=== PATIENT | female | born 1990 | race Caucasian/White ===

== ENCOUNTER 2016-06-11 11:44 | Observation (INO) | payer MEDICAID ==
[~2016-06-11] VITALS: Ht 170.2 cm; Wt 54.4 kg
[~2016-06-11 11:44] MED LIST: ALPR2TAB2 PO; BUPR4MIS SL
[2016-06-11] MEDS ORDERED: SODIUM CHLORIDE 0.9% 1,000 ML IVB ONE (13:02)
[2016-06-11 13:40] LABS: Basophils # (auto) 0 uL; Basophils % (auto) 0.4 % (0.0-2.0); Eosinophils # (auto) 0.1 uL; Eosinophils % (auto) 1.1 % (0.0-7.0); Hematocrit 46.1 % (36.0-46.0); Hemoglobin 15.5 g/dL (12.2-16.2); Lymphocytes # (auto) 1.6 uL; Lymphocytes % (auto) 18.2 % (10.0-50.0); Mean Corpuscular Hemoglobin 31.5 pg (28.0-32.0); Mean Corpuscular Hgb Conc. 33.6 g/dL (32.0-36.0); Mean Corpuscular Volume 93.8 fL (80.0-100.0); Mean Platelet Volume 7.7 fL (7.4-10.4); Monocytes # (auto) 0.8 uL; Monocytes % (auto) 9.1 % (0.0-12.0); Neutrophils # (auto) 6.3 uL; Neutrophils % (auto) 71.2 % (37.0-80.0); Platelet Count (auto) 409 10^3/uL (140-450); Red Cell Distribution Width 12.9 % (11.6-16.0); White Blood Cell 8.9 10^3/uL (4.4-10.8)
[2016-06-11 13:44] LABS: INR 1.13 (0.9-1.15); Partial Thromboplastin Time 21.5 sec (22.64-33.71); Prothrombin Time 11.6 sec (9.37-12.3)
[2016-06-11 14:05] LABS: Albumin 4.5 g/dL (3.4-5.0); Anion Gap 12 (5-15); Aspartate Aminotransferase 8 U/L (15-37); BUN/Creatinine Ratio 41.7; Blood Urea Nitrogen 20 mg/dL (7-18); Calcium 8.8 mg/dL (8.5-10.1); Carbon Dioxide 23 mmol/L (21-32); Chloride 105 mmol/L (98-107); GFR African American 201 mL/min; GFR Non-African American 166 mL/min; Glucose 85 mg/dL (74-106); Magnesium 2.2 mg/dL (1.6-2.6); Potassium 3.6 mmol/L (3.5-5.1); Sodium 140 mmol/L (136-145)
[2016-06-11 14:08] LABS: Alkaline Phosphatase 69 U/L (45-117); Bilirubin, Total 0.6 mg/dL (0.2-1.0); Total Protein 8.6 g/dL (6.4-8.2)
[2016-06-11 15:58] VITALS: BP 106/67
[2016-06-11 16:11] LABS: Urine RBC None Seen /hpf (0 - 4)
[2016-06-11 16:40] LABS: Urine Bilirubin Negative (Negative); Urine Blood Negative /uL (Negative); Urine Color Yellow (Yellow); Urine Glucose Normal (Normal); Urine Hyaline Cast FEW /lpf (0 - 2); Urine Mucus FEW (None Seen); Urine Squamous Epithelial Cell FEW /hpf (<5); Urine Urobilinogen Normal (Negative)
[2016-06-11 16:51] LABS: Urine Ketone 4+ (Negative); Urine Nitrite POSITIVE (Negative)
== END 2016-06-11 17:52 | disposition home or self-care (01) | DRG 463 ==
LOC: EDBD 11:44 → ER 11:44 → UNDOADMOB 11:45 → OVERFLOW 11:45 → UNDODISOB 17:52 → ER 17:52
PROVIDERS: ADMIT Family Medicine; ATTEND Family Medicine
DX: N30.00 Acute cystitis without hematuria (principal); F19.20 Other psychoactive substance dependence, uncomplicated; Z79.899 Other long term (current) drug therapy; Z82.49 Family history of ischemic heart disease and other diseases of the circulatory system; F17.210 Nicotine dependence, cigarettes, uncomplicated
CPT/HCPCS: 36415; 80053; 80320; 81001; 83735; 85025; 85610; 85730; 96360; G0378; G0434

== ENCOUNTER 2017-12-02 11:17 | Inpatient (IN) | payer MEDICAID ==
[~2017-12-02] VITALS: Ht 170.2 cm; Wt 83.4 kg
[2017-12-02 12:20] LABS: Urine Bacteria FEW /hpf (None Seen); Urine Blood TRACE /uL (Negative); Urine Mucus FEW (None Seen); Urine Specific Gravity 1.025 (1.001-1.035); Urine WBC 3 /hpf (0 - 5)
[2017-12-02 12:59] LABS: Basophils # (auto) 0 uL; Basophils % (auto) 0.1 % (0.0-2.0); Eosinophils # (auto) 0 uL; Lymphocytes # (auto) 0.7 uL; Monocytes # (auto) 0.8 uL; Red Cell Distribution Width 14.5 % (11.8-14.3)
[2017-12-02 13:02] LABS: Eosinophils % (auto) 0.2 % (0.0-7.0); Hematocrit 46.9 % (36.0-46.0); Hemoglobin 16.1 g/dL (12.2-16.2); Lymphocytes % (auto) 6.1 % (10.0-50.0); Mean Corpuscular Hemoglobin 35.3 pg (28.0-32.0); Mean Corpuscular Hgb Conc. 34.3 g/dL (32.0-36.0); Monocytes % (auto) 7.1 % (0.0-12.0); Neutrophils # (auto) 10.3 uL; Neutrophils % (auto) 86.5 % (37.0-80.0); Nucleated Red Blood Cells % 0.1 %; Platelet Count (auto) 248 10^3/uL (140-450); Red Blood Cells 4.55 10^6/uL (4.0-5.20); White Blood Cell 11.9 10^3/uL (4.4-10.8)
[2017-12-02 13:20] LABS: Albumin 3.7 g/dL (3.4-5.0); BUN/Creatinine Ratio 25.8; Calcium 8.5 mg/dL (8.5-10.1); Potassium 3.9 mmol/L (3.5-5.1); Total Protein 8.1 g/dL (6.4-8.2)
[2017-12-02 13:28] LABS: Bilirubin, Total 1.6 mg/dL (0.2-1.0)
[2017-12-02] MEDS ORDERED: SODIUM CHLORIDE 0.9% 1,000 ML IVB ONE (14:39)
[2017-12-02] MEDS ORDERED: cefTRIAXone 1GM/10ml IVPUSH 10 ML IV ONE ×2 (14:45→18:15)
[2017-12-02] MEDS ORDERED: ONDANSETRON HCL 4 MG/2 ML VIAL IV ONE (14:45)
[2017-12-02] MEDS ORDERED: MORPHINE SULF INJ 2 MG/ML SYRINGE 1ML IV ONE (15:45)
[2017-12-02] MEDS ORDERED: NITROGLYCERIN 0.4 MG SL TAB SL PRN (18:15)
[2017-12-02] MEDS ORDERED: SODIUM CHLORIDE 0.9% 1,000 ML IV ONE (18:15)
[2017-12-02] MEDS ORDERED: MORPHINE SULF INJ 2 MG/ML SYRINGE 1ML IV PRN (18:15)
[2017-12-02] MEDS ORDERED: PANTOPRAZOLE 40 MG/10 ML VIAL IV ONE (18:30)
[2017-12-02] MEDS: metroNIDAZOLE 500MG/100ML 100 ML IV SCH ×2 (20:15→22:00)
[2017-12-02] MEDS: MORPHINE SULFATE 4 MG/ML SYR/VIAL IV PRN (20:19)
[2017-12-02] MEDS: traZODone HCL 50 MG TAB PO SCH (22:00)
[2017-12-02 23:30] VITALS: BP 151/87
[2017-12-02 23:39] VITALS: BP 151/87
[2017-12-03] MEDS: MORPHINE SULFATE 4 MG/ML SYR/VIAL IV PRN ×3 (02:00→10:20)
[2017-12-03] MEDS ORDERED: TRAZ50TA2 PO (02:15)
[2017-12-03] MEDS ORDERED: OLAN20TA13 PO (02:15)
[2017-12-03 05:00] VITALS: BP 145/76
[2017-12-03] MEDS: metroNIDAZOLE 500MG/100ML 100 ML IV SCH ×3 (06:11→20:59)
[2017-12-03 06:26] LABS: Basophils # (auto) 0 uL; Basophils % (auto) 0.1 % (0.0-2.0); Eosinophils # (auto) 0.1 uL; Eosinophils % (auto) 1.1 % (0.0-7.0); Hematocrit 43.6 % (36.0-46.0); Lymphocytes # (auto) 0.7 uL; Lymphocytes % (auto) 7.4 % (10.0-50.0); Monocytes # (auto) 0.7 uL; Neutrophils # (auto) 7.9 uL; White Blood Cell 9.4 10^3/uL (4.4-10.8)
[2017-12-03 06:30] LABS: Mean Corpuscular Hemoglobin 35.4 pg (28.0-32.0); Mean Corpuscular Hgb Conc. 34.5 g/dL (32.0-36.0); Mean Corpuscular Volume 102.6 fL (80.0-100.0); Monocytes % (auto) 7.4 % (0.0-12.0); Platelet Count (auto) 182 10^3/uL (140-450); Red Blood Cells 4.25 10^6/uL (4.0-5.20); Red Cell Distribution Width 14.6 % (11.8-14.3)
[2017-12-03 06:56] LABS: Potassium 3.5 mmol/L (3.5-5.1)
[2017-12-03 07:00] LABS: Albumin 2.8 g/dL (3.4-5.0); BUN/Creatinine Ratio 16.1; Calcium 7.1 mg/dL (8.5-10.1)
[2017-12-03 07:03] LABS: Bilirubin, Total 1.7 mg/dL (0.2-1.0); Total Protein 6.4 g/dL (6.4-8.2)
[2017-12-03 08:39] VITALS: BP 134/75
[2017-12-03] MEDS: cefTRIAXone 1GM/10ml IVPUSH 10 ML IV SCH (09:02)
[2017-12-03] MEDS: OLANZapine 5 MG TAB PO SCH (09:03)
[2017-12-03] MEDS: PANTOPRAZOLE 40 MG/10 ML VIAL IV SCH (09:03)
[2017-12-03] MEDS ORDERED: OLANZapine 5 MG TAB PO SCH (10:00)
[2017-12-03] MEDS ORDERED: MORPHINE SULFATE 4 MG/ML SYR/VIAL IV PRN (11:15)
[2017-12-03] MEDS: SODIUM CHLORIDE 0.9% 1,000 ML IV SCH ×2 (12:15→20:40)
[2017-12-03 13:15] VITALS: BP 149/98
[2017-12-03] MEDS: MORPHINE SULF INJ 2 MG/ML SYRINGE 1ML IV PRN ×3 (13:44→21:00)
[2017-12-03 16:29] VITALS: BP 142/83
[2017-12-03 20:00] VITALS: BP 137/85
[2017-12-03] MEDS: traZODone HCL 50 MG TAB PO SCH (20:59)
[2017-12-03 21:58] VITALS: BP 137/85
[2017-12-04] MEDS: MORPHINE SULF INJ 2 MG/ML SYRINGE 1ML IV PRN ×7 (00:24→23:13)
[2017-12-04 05:00] VITALS: BP 142/85
[2017-12-04] MEDS: SODIUM CHLORIDE 0.9% 1,000 ML IV SCH ×3 (05:57→19:15)
[2017-12-04] MEDS: metroNIDAZOLE 500MG/100ML 100 ML IV SCH ×3 (05:57→21:36)
[2017-12-04 08:58] VITALS: BP 128/80
[2017-12-04] MEDS: PANTOPRAZOLE 40 MG/10 ML VIAL IV SCH (09:35)
[2017-12-04] MEDS: cefTRIAXone 1GM/10ml IVPUSH 10 ML IV SCH (09:35)
[2017-12-04 09:39] LABS: Basophils # (auto) 0 uL; Basophils % (auto) 0.2 % (0.0-2.0); Eosinophils # (auto) 0.1 uL; Lymphocytes # (auto) 0.9 uL; Neutrophils # (auto) 8.3 uL; White Blood Cell 10.5 10^3/uL (4.4-10.8)
[2017-12-04 09:41] LABS: Eosinophils % (auto) 1.3 % (0.0-7.0); Hematocrit 38.1 % (36.0-46.0); Hemoglobin 12.9 g/dL (12.2-16.2); Lymphocytes % (auto) 8.8 % (10.0-50.0); Mean Corpuscular Hemoglobin 34.9 pg (28.0-32.0); Mean Corpuscular Hgb Conc. 33.8 g/dL (32.0-36.0); Mean Corpuscular Volume 103.4 fL (80.0-100.0); Monocytes # (auto) 1.1 uL; Monocytes % (auto) 10.5 % (0.0-12.0); Neutrophils % (auto) 79.2 % (37.0-80.0); Platelet Count (auto) 153 10^3/uL (140-450); Red Blood Cells 3.69 10^6/uL (4.0-5.20); Red Cell Distribution Width 14.7 % (11.8-14.3)
[2017-12-04] MEDS: OLANZapine 5 MG TAB PO SCH (09:41)
[2017-12-04 09:55] LABS: Albumin 2.2 g/dL (3.4-5.0); BUN/Creatinine Ratio 9.3; Bilirubin, Direct 0.3 mg/dL (0-0.2); Bilirubin, Total 0.7 mg/dL (0.2-1.0); Calcium 6.6 mg/dL (8.5-10.1); Potassium 3.1 mmol/L (3.5-5.1); Total Protein 5.7 g/dL (6.4-8.2)
[2017-12-04] MEDS ORDERED: FLUO-125 PO (10:49)
[2017-12-04] MEDS ORDERED: DIVA250T3 PO (10:49)
[2017-12-04 13:20] VITALS: BP 122/82
[2017-12-04] MEDS: POTASSIUM CHL 20MEQ/100ML 100 ML IV SCH ×2 (14:31→17:08)
[2017-12-04 17:00] VITALS: BP 130/82
[2017-12-04] MEDS: traZODone HCL 50 MG TAB PO SCH (21:37)
[2017-12-04 22:00] VITALS: BP 141/95
[2017-12-05] MEDS: MORPHINE SULF INJ 2 MG/ML SYRINGE 1ML IV PRN ×9 (02:15→23:32)
[2017-12-05 05:00] VITALS: BP 137/86
[2017-12-05] MEDS: SODIUM CHLORIDE 0.9% 1,000 ML IV SCH ×3 (07:33→19:15)
[2017-12-05] MEDS: metroNIDAZOLE 500MG/100ML 100 ML IV SCH ×3 (07:34→21:33)
[2017-12-05 07:42] LABS: Basophils # (auto) 0 uL; Eosinophils # (auto) 0.2 uL; Hemoglobin 12.4 g/dL (12.2-16.2); Lymphocytes # (auto) 0.8 uL; Mean Corpuscular Volume 103.3 fL (80.0-100.0); Monocytes # (auto) 1.7 uL
[2017-12-05 07:43] LABS: Basophils % (auto) 0.3 % (0.0-2.0); Eosinophils % (auto) 1.7 % (0.0-7.0); Hematocrit 36.3 % (36.0-46.0); Lymphocytes % (auto) 7.4 % (10.0-50.0); Mean Corpuscular Hemoglobin 35.2 pg (28.0-32.0); Mean Corpuscular Hgb Conc. 34.1 g/dL (32.0-36.0); Monocytes % (auto) 15.9 % (0.0-12.0); Neutrophils % (auto) 74.7 % (37.0-80.0); Nucleated Red Blood Cells % 0.2 %; Platelet Count (auto) 208 10^3/uL (140-450); Red Blood Cells 3.52 10^6/uL (4.0-5.20); White Blood Cell 10.7 10^3/uL (4.4-10.8)
[2017-12-05 08:04] LABS: Albumin 2.3 g/dL (3.4-5.0); BUN/Creatinine Ratio 8.8; Bilirubin, Total 0.7 mg/dL (0.2-1.0); Calcium 7.2 mg/dL (8.5-10.1); Potassium 3.4 mmol/L (3.5-5.1); Total Protein 6.1 g/dL (6.4-8.2)
[2017-12-05 09:00] VITALS: BP 145/99
[2017-12-05] MEDS: PANTOPRAZOLE 40 MG/10 ML VIAL IV SCH (09:44)
[2017-12-05] MEDS: cefTRIAXone 1GM/10ml IVPUSH 10 ML IV SCH (09:44)
[2017-12-05] MEDS: OLANZapine 5 MG TAB PO SCH (10:00)
[2017-12-05] MEDS: POTASSIUM CHL 20MEQ/100ML 100 ML IV SCH ×2 (11:09→12:56)
[2017-12-05 13:00] VITALS: BP 141/95
[2017-12-05 17:00] VITALS: BP 157/97
[2017-12-05 21:27] VITALS: BP 138/88
[2017-12-05] MEDS: traZODone HCL 50 MG TAB PO SCH (22:00)
[2017-12-06] MEDS: MORPHINE SULF INJ 2 MG/ML SYRINGE 1ML IV PRN ×8 (01:56→21:44)
[2017-12-06] MEDS: SODIUM CHLORIDE 0.9% 1,000 ML IV SCH (04:20)
[2017-12-06 05:33] VITALS: BP 139/92
[2017-12-06] MEDS: metroNIDAZOLE 500MG/100ML 100 ML IV SCH ×3 (06:33→21:43)
[2017-12-06 09:00] VITALS: BP 139/84
[2017-12-06] MEDS: PANTOPRAZOLE 40 MG/10 ML VIAL IV SCH (09:00)
[2017-12-06] MEDS: cefTRIAXone 1GM/10ml IVPUSH 10 ML IV SCH (09:00)
[2017-12-06] MEDS: OLANZapine 5 MG TAB PO SCH (10:00)
[2017-12-06 10:30] LABS: Basophils # (auto) 0 uL; Eosinophils # (auto) 0.2 uL; Lymphocytes # (auto) 0.8 uL
[2017-12-06 10:33] LABS: Basophils % (auto) 0.3 % (0.0-2.0); Eosinophils % (auto) 2.2 % (0.0-7.0); Hematocrit 36.7 % (36.0-46.0); Hemoglobin 12.5 g/dL (12.2-16.2); Mean Corpuscular Hemoglobin 34.7 pg (28.0-32.0); Monocytes # (auto) 1.6 uL; Monocytes % (auto) 17.7 % (0.0-12.0); Neutrophils # (auto) 6.2 uL; Neutrophils % (auto) 70.8 % (37.0-80.0); Nucleated Red Blood Cells % 0.1 %; Platelet Count (auto) 252 10^3/uL (140-450); Red Cell Distribution Width 14.5 % (11.8-14.3); White Blood Cell 8.8 10^3/uL (4.4-10.8)
[2017-12-06 11:16] LABS: Albumin 2.3 g/dL (3.4-5.0); BUN/Creatinine Ratio 5.9; Bilirubin, Total 0.4 mg/dL (0.2-1.0); Calcium 7.2 mg/dL (8.5-10.1); Total Protein 5.9 g/dL (6.4-8.2)
[2017-12-06 11:40] LABS: Potassium 2.9 mmol/L (3.5-5.1)
[2017-12-06] MEDS: POTASSIUM CHL 20MEQ/100ML 100 ML IV SCH ×2 (12:28→15:55)
[2017-12-06 13:00] VITALS: BP 135/86
[2017-12-06] MEDS: LACTATED RINGER'S 1,000 ML IV SCH ×2 (15:56→19:30)
[2017-12-06 17:30] VITALS: BP 141/95
[2017-12-06] MEDS: traZODone HCL 50 MG TAB PO SCH (21:43)
[2017-12-06 22:00] VITALS: BP 135/83
[2017-12-07] MEDS: MORPHINE SULF INJ 2 MG/ML SYRINGE 1ML IV PRN ×5 (00:12→09:11)
[2017-12-07] MEDS: LACTATED RINGER'S 1,000 ML IV SCH ×4 (02:20→23:28)
[2017-12-07 05:01] VITALS: BP 138/89
[2017-12-07] MEDS: metroNIDAZOLE 500MG/100ML 100 ML IV SCH ×3 (06:15→17:00)
[2017-12-07 09:00] VITALS: BP 145/95
[2017-12-07] MEDS: PANTOPRAZOLE 40 MG/10 ML VIAL IV SCH (09:10)
[2017-12-07] MEDS: cefTRIAXone 1GM/10ml IVPUSH 10 ML IV SCH (09:10)
[2017-12-07] MEDS: OLANZapine 5 MG TAB PO SCH (10:00)
[2017-12-07 10:25] LABS: INR 1.11 (0.9-1.15); Prothrombin Time 11.8 sec (9.27-12.13)
[2017-12-07 10:31] LABS: Albumin 2.4 g/dL (3.4-5.0); BUN/Creatinine Ratio 11.4; Bilirubin, Total 0.4 mg/dL (0.2-1.0); Calcium 7.8 mg/dL (8.5-10.1); Potassium 3.1 mmol/L (3.5-5.1); Total Protein 6.3 g/dL (6.4-8.2)
[2017-12-07] MEDS: POTASSIUM CHL 20MEQ/100ML 100 ML IV SCH ×4 (10:45→23:27)
[2017-12-07] MEDS ORDERED: SUCCINYLCHOLINE CHLORIDE 20 MG/ML 10ML VIAL IV ONE (11:19)
[2017-12-07] MEDS ORDERED: LIDOCAINE 1% (LOCAL ANESTH.) PF 5ml SDV ONE (11:19)
[2017-12-07] MEDS ORDERED: ROCURONIUM 10MG/ML 10ML VIAL IV ONE (11:34)
[2017-12-07] MEDS ORDERED: MIDAZOLAM HCL 1MG/1ML-2 ML VIAL ONE (11:34)
[2017-12-07] MEDS ORDERED: ETOMIDATE (2MG/ML) 20ML VIAL IV ONE (11:34)
[2017-12-07] MEDS ORDERED: fentaNYL CITRATE 100 MCG/2 ML VL ONE (12:13)
[2017-12-07] MEDS ORDERED: ceFAZolin 1GM VL ONE (12:26)
[2017-12-07] MEDS ORDERED: ONDANSETRON HCL 4 MG/2 ML VIAL IV ONE (12:30)
[2017-12-07] MEDS ORDERED: NALOXONE HCL 0.4 MG/ML VIAL IV PRN (12:30)
[2017-12-07] MEDS ORDERED: HYDROmorphone HCL 2 MG/ML VL IV PRN ×2 (12:30)
[2017-12-07] MEDS ORDERED: METOCLOPRAMIDE HCL 5MG/ml INJ 2ml VIAL ONE (12:41)
[2017-12-07] MEDS ORDERED: KETOROLAC TROMETH 30 MG/ML 1ML VIAL ONE (12:42)
[2017-12-07] MEDS ORDERED: NEOSTIGMINE 1 MG/ML INJ (10mg/10ML VIAL) ONE (13:00)
[2017-12-07] MEDS ORDERED: GLYCOPYRROLATE 0.2 MG/ML 1ML VIAL ONE (13:00)
[2017-12-07] MEDS ORDERED: BUPIVACAINE 0.25% INJ 50ML VIAL ONE (13:03)
[2017-12-07 13:35] LABS: Hematocrit 34.9 % (36.0-46.0); Hemoglobin 11.6 g/dL (12.2-16.2); Mean Corpuscular Hemoglobin 34.3 pg (28.0-32.0); Mean Corpuscular Hgb Conc. 33.2 g/dL (32.0-36.0); Platelet Count (auto) 337 10^3/uL (140-450); Red Blood Cells 3.39 10^6/uL (4.0-5.20); Red Cell Distribution Width 14.5 % (11.8-14.3); White Blood Cell 12.1 10^3/uL (4.4-10.8)
[2017-12-07 13:38] LABS: Basophils % (manual) 0 (0.0-2.0); Blast Cells 0; Metamyelocytes % 0; Myelocytes % 0; Promyelocytes % 0; Reactive Lymphocytes 0
[2017-12-07 13:51] LABS: Band Neutrophils % (manual) 5; Eosinophils % (manual) 2 (0-7); Lymphocytes % (manual) 10 (10.0-50.0); Monocytes % (manual) 10 (0-12)
[2017-12-07 14:32] VITALS: BP 148/98
[2017-12-07] MEDS: ONDANSETRON HCL 4 MG/2 ML VIAL IV PRN ×2 (14:55→20:10)
[2017-12-07] MEDS: HYDROmorphone HCL 2 MG/ML VL IV PRN ×2 (14:56→20:10)
[2017-12-07 17:00] VITALS: BP 124/68
[2017-12-07] MEDS ORDERED: POTASSIUM CHL 20MEQ/100ML 100 ML IV ONE (17:15)
[2017-12-07] MEDS: traZODone HCL 50 MG TAB PO SCH (22:00)
[2017-12-08] MEDS: ONDANSETRON HCL 4 MG/2 ML VIAL IV PRN ×3 (00:50→10:24)
[2017-12-08] MEDS: HYDROmorphone HCL 2 MG/ML VL IV PRN ×6 (00:55→22:56)
[2017-12-08] MEDS: metroNIDAZOLE 500MG/100ML 100 ML IV SCH ×3 (03:31→18:09)
[2017-12-08 05:00] VITALS: BP 133/75
[2017-12-08] MEDS: LACTATED RINGER'S 1,000 ML IV SCH ×3 (05:55→18:05)
[2017-12-08 06:15] LABS: Basophils # (auto) 0 uL; Eosinophils # (auto) 0.2 uL; Eosinophils % (auto) 1.5 % (0.0-7.0); Hemoglobin 11.6 g/dL (12.2-16.2); Lymphocytes # (auto) 0.7 uL; Monocytes # (auto) 1.9 uL; Neutrophils # (auto) 8.5 uL; Nucleated Red Blood Cells % 0.1 %; White Blood Cell 11.3 10^3/uL (4.4-10.8)
[2017-12-08 06:23] LABS: Basophils % (auto) 0.2 % (0.0-2.0); Hematocrit 34.2 % (36.0-46.0); Lymphocytes % (auto) 6.4 % (10.0-50.0); Mean Corpuscular Hemoglobin 34.9 pg (28.0-32.0); Mean Corpuscular Hgb Conc. 33.9 g/dL (32.0-36.0); Mean Corpuscular Volume 102.8 fL (80.0-100.0); Monocytes % (auto) 16.7 % (0.0-12.0); Neutrophils % (auto) 75.2 % (37.0-80.0); Platelet Count (auto) 367 10^3/uL (140-450); Red Blood Cells 3.33 10^6/uL (4.0-5.20); Red Cell Distribution Width 14.6 % (11.8-14.3)
[2017-12-08 06:37] LABS: Albumin 2.2 g/dL (3.4-5.0); Calcium 7.6 mg/dL (8.5-10.1); Potassium 3.3 mmol/L (3.5-5.1)
[2017-12-08 06:42] LABS: Bilirubin, Total 0.4 mg/dL (0.2-1.0)
[2017-12-08 06:43] LABS: BUN/Creatinine Ratio 16.7
[2017-12-08 09:00] VITALS: BP 117/78
[2017-12-08] MEDS: cefTRIAXone 1GM/10ml IVPUSH 10 ML IV SCH (09:41)
[2017-12-08] MEDS: POTASSIUM CHL 20MEQ/100ML 100 ML IV SCH ×2 (10:22→14:14)
[2017-12-08] MEDS: OLANZapine 5 MG TAB PO SCH (10:25)
[2017-12-08] MEDS: PANTOPRAZOLE 40 MG/10 ML VIAL IV SCH (10:26)
[2017-12-08 13:00] VITALS: BP 137/88
[2017-12-08 22:00] VITALS: BP 122/83
[2017-12-08] MEDS: traZODone HCL 50 MG TAB PO SCH (22:20)
[2017-12-09] MEDS: LACTATED RINGER'S 1,000 ML IV SCH ×4 (01:07→20:45)
[2017-12-09] MEDS: metroNIDAZOLE 500MG/100ML 100 ML IV SCH ×3 (01:07→17:40)
[2017-12-09] MEDS: HYDROmorphone HCL 2 MG/ML VL IV PRN ×6 (02:58→23:25)
[2017-12-09 05:00] VITALS: BP 121/70
[2017-12-09 08:36] VITALS: BP 118/74
[2017-12-09] MEDS: cefTRIAXone 1GM/10ml IVPUSH 10 ML IV SCH (09:02)
[2017-12-09] MEDS: PANTOPRAZOLE 40 MG/10 ML VIAL IV SCH (10:26)
[2017-12-09] MEDS: OLANZapine 5 MG TAB PO SCH (10:26)
[2017-12-09 13:01] VITALS: BP 124/76
[2017-12-09 17:00] VITALS: BP 126/78
[2017-12-09] MEDS: traZODone HCL 50 MG TAB PO SCH (21:07)
[2017-12-09 22:00] VITALS: BP 118/71
[2017-12-10] MEDS: metroNIDAZOLE 500MG/100ML 100 ML IV SCH ×2 (01:18→09:26)
[2017-12-10] MEDS: LACTATED RINGER'S 1,000 ML IV SCH ×2 (02:56→10:05)
[2017-12-10] MEDS: HYDROmorphone HCL 2 MG/ML VL IV PRN ×3 (03:32→14:08)
[2017-12-10 05:00] VITALS: BP 124/72
[2017-12-10 07:53] VITALS: BP 121/78
[2017-12-10 09:00] VITALS: BP 121/78
[2017-12-10] MEDS: cefTRIAXone 1GM/10ml IVPUSH 10 ML IV SCH (09:26)
[2017-12-10] MEDS: OLANZapine 5 MG TAB PO SCH (09:58)
[2017-12-10] MEDS: PANTOPRAZOLE 40 MG/10 ML VIAL IV SCH (09:58)
[2017-12-10 13:00] VITALS: BP 119/78
[2017-12-10 15:40] VITALS: BP 119/78
== END 2017-12-10 16:30 | disposition home or self-care (01) | DRG 263 ==
LOC: ER 11:17 → OVERFLOW 11:18 → WEST WING 23:25
PROVIDERS: ADMIT Family Medicine; ATTEND Internal Medicine
PROC: 0FT44ZZ Resection of Gallbladder, Percutaneous Endoscopic Approach (ICD-10-PCS; principal; 2017-12-07 11:55)
DX: K85.10 Biliary acute pancreatitis without necrosis or infection (principal); K80.62 Calculus of gallbladder and bile duct with acute cholecystitis without obstruction; F10.10 Alcohol abuse, uncomplicated; F17.210 Nicotine dependence, cigarettes, uncomplicated; F31.9 Bipolar disorder, unspecified; Z82.49 Family history of ischemic heart disease and other diseases of the circulatory system; K85.20 Alcohol induced acute pancreatitis without necrosis or infection
CPT/HCPCS: 36415; 74181; 76705; 80053; 80076; 81001; 81025; 82150; 83690; 83735; 84484; 85007; 85025; 85027; 85610; 86850; 86900; 86901; 96361; 96374; 96375; C9113; J0330; J0690; J0696; J1885; J2250; J2405; J3480; J3490

== ENCOUNTER 2019-10-02 23:57 | Emergency (ER) | payer MEDICAID ==
[~2019-10-02] VITALS: Ht 152.4 cm; Wt 63.5 kg
[~2019-10-02 23:57] MED LIST changes: -ALPR2TAB2 PO; -BUPR4MIS SL; +DIVA250T12 PO; +FLUO-125 PO; +OLAN20TA13 PO; +TRAZ50TA2 PO
[2019-10-03 00:15] VITALS: BP 121/85
== END 2019-10-03 03:00 | disposition left against medical advice (07) ==
LOC: EDBD 23:57 → ER 10-03
DX: R10.9 Unspecified abdominal pain (principal); Z53.21 Procedure and treatment not carried out due to patient leaving prior to being seen by health care provider

== ENCOUNTER 2019-12-15 12:57 | Inpatient (IN) | payer MEDICAID ==
[~2019-12-15] VITALS: Ht 160 cm; Wt 57.3 kg
[2019-12-15] MEDS ORDERED: LORazepam 2MG/ML-1ML VIAL IV ONE (13:15)
[2019-12-15] MEDS ORDERED: SODIUM CHLORIDE 0.9% 1,000 ML IV ONE (13:15)
[2019-12-15 13:40] LABS: Basophils # (auto) 0 10 ^3/uL (0-0.2); Basophils % (auto) 0.3 % (0.0-2.0); Eosinophils # (auto) 0 10 ^3/uL (0-0.8); Lymphocytes # (auto) 0.3 10 ^3/uL (0.4-5.4); Mean Corpuscular Volume 107.2 fL (80.0-100.0); Neutrophils # (auto) 8.5 10 ^3/uL (1.6-8.6); Nucleated Red Blood Cells % 0.1 %; Red Cell Distribution Width 14.2 % (11.8-14.3)
[2019-12-15 13:42] LABS: Hematocrit 38.7 % (36.0-46.0); Hemoglobin 13.7 g/dL (12.2-16.2); Lymphocytes % (auto) 3.2 % (10.0-50.0); Mean Corpuscular Hgb Conc. 35.5 g/dL (32.0-36.0); Monocytes # (auto) 1.2 10 ^3/uL (0-1.3); Monocytes % (auto) 12.1 % (0.0-12.0); Neutrophils % (auto) 84.4 % (37.0-80.0); Platelet Count (auto) 164 10^3/uL (140-450); Red Blood Cells 3.61 10^6/uL (4.0-5.20)
[2019-12-15 13:57] LABS: Albumin 3.6 g/dL (3.4-5.0); Anion Gap 16 (5-15); Blood Alcohol < 3.0 mg/dL (0-5); Blood Urea Nitrogen 6 mg/dL (7-18); Calcium 8.5 mg/dL (8.5-10.1); Carbon Dioxide 25 mmol/L (21-32); Chloride 90 mmol/L (98-107); Glucose 155 mg/dL (74-106); Potassium 3.1 mmol/L (3.5-5.1); Sodium 131 mmol/L (136-145)
[2019-12-15 14:01] LABS: Alanine Aminotransferase 348 U/L (13-56); Alkaline Phosphatase 222 U/L (45-117); Aspartate Aminotransferase 972 U/L (15-37); BUN/Creatinine Ratio 7.3; Bilirubin, Total 4.6 mg/dL (0.2-1.0); GFR African American 106 mL/min; GFR Non-African American 88 mL/min; Total Protein 8.1 g/dL (6.4-8.2)
[2019-12-15] MEDS ORDERED: POTASSIUM CHL 20MEQ/100ML 100 ML IV ONE (15:00)
[2019-12-15] MEDS ORDERED: LORazepam 2MG/ML-1ML VIAL IV PRN (16:00)
[2019-12-15] MEDS ORDERED: SODIUM CHLORIDE 0.9% 1,000 ML IV SCH (16:00)
[2019-12-15] MEDS ORDERED: LABETALOL HCL 5 MG/ML 4ML SYRINGE IV PRN (16:00)
[2019-12-15] MEDS ORDERED: DOCUSATE CALCIUM 240 MG CAP PO PRN (16:00)
[2019-12-15] MEDS ORDERED: chlordiazePOXIDE HCL 5 MG CAP PO PRN (16:00)
[2019-12-15] MEDS ORDERED: NITROGLYCERIN 0.4 MG SL TAB SL PRN (16:00)
[2019-12-15] MEDS ORDERED: MORPHINE SULF INJ 2 MG/ML SYRINGE 1ML IV PRN (16:00)
[2019-12-15] MEDS ORDERED: ACETAMINOPHEN 500 MG TAB PO PRN (16:00)
[2019-12-15] MEDS ORDERED: IBUPROFEN 600 MG TAB PO PRN (17:00)
[2019-12-15 17:54] VITALS: BP 130/80
[2019-12-15] MEDS ORDERED: OLANZAPINE 10 MG PO SCH (18:00)
--- NOTE | 2019-12-15 18:00 | NUR ---
Telemetry admit from ER ZULAY HENRY admitted to Telemetry unit after SBAR received. Patient oriented to Chadwick Yancey RN primary RN, unit, room, bed. AAOX3, breathing even, nonlabored, S, S2, abd soft nontender, last bm was yesterday. On seizure precaution, side rails padded. Patient placed on bedside oxygen, weighed by bedscale and encouraged to call if they need something. All questions and concerns addressed, patient verbalized understanding. Bed locked in the lowest position, call light within easy reach, will continue to monitor.
[2019-12-15] MEDS: OLANZapine 5 MG TAB PO SCH (18:11)
--- NOTE | 2019-12-15 19:40 | NUR ---
Opening Shift Note Assumed care of patient, awake and alert. A&Ox3. No S/S of distress/SOB or pain. Safety measures maintained by keeping the bed locked in lowest position, 2 side rails up, personal items and call light within reach. Seizure precautions in place. Instructed on POC and to call for assist PRN, will continue to monitor for changes Q1hr and PRN.
[2019-12-15] MEDS ORDERED: FOLIC ACID 1 MG, MULTIPLE VITAMIN 10 ML, MAGNESIUM SULF SDV 50% 8 MEQ, THIAMINE INJ 100... INJ ONE ×5 (20:30)
--- NOTE | 2019-12-15 20:35 | NUR ---
Urine and MRSA swab sent down to lab
[2019-12-15 20:58] LABS: Amphetamine Screen, Urine POSITIVE (NEGATIVE); Barbiturate Scree,Urine NEGATIVE (NEGATIVE); Benzodiazephine Screen, Urine NEGATIVE (NEGATIVE); Cannabinoid Screen, Urine NEGATIVE (NEGATIVE); Cocaine Screen, Urine NEGATIVE (NEGATIVE); Opiate Scree,Urine NEGATIVE (NEGATIVE); Phencyclidine Screen, Urine NEGATIVE (NEGATIVE)
[2019-12-15 21:02] LABS: Urine Bacteria NONE SEEN /hpf (None Seen); Urine Blood Negative /uL (Negative); Urine Specific Gravity 1.002 (1.001-1.035); Urine WBC 1 /hpf (0 - 5)
[2019-12-15 22:00] VITALS: BP 143/94
[2019-12-15] MEDS: VALPROIC ACID 250 MG/5 ML ORAL SOLN PO SCH (22:20)
[2019-12-16 05:00] VITALS: BP 136/83
[2019-12-16] MEDS: VALPROIC ACID 250 MG/5 ML ORAL SOLN PO SCH ×3 (05:48→14:52)
[2019-12-16 06:02] LABS: Basophils # (auto) 0 10 ^3/uL (0-0.2); Basophils % (auto) 0.4 % (0.0-2.0); Eosinophils # (auto) 0.1 10 ^3/uL (0-0.8); Hemoglobin 12.3 g/dL (12.2-16.2); Lymphocytes # (auto) 0.9 10 ^3/uL (0.4-5.4); Monocytes # (auto) 0.5 10 ^3/uL (0-1.3); Nucleated Red Blood Cells % 0.1 %
[2019-12-16 06:12] LABS: Eosinophils % (auto) 0.9 % (0.0-7.0); Hematocrit 33.8 % (36.0-46.0); INR 1.21 (0.9-1.15); Lymphocytes % (auto) 14.9 % (10.0-50.0); Mean Corpuscular Hemoglobin 39.1 pg (28.0-32.0); Mean Corpuscular Hgb Conc. 36.2 g/dL (32.0-36.0); Monocytes % (auto) 8.2 % (0.0-12.0); Neutrophils # (auto) 4.5 10 ^3/uL (1.6-8.6); Neutrophils % (auto) 75.6 % (37.0-80.0); Partial Thromboplastin Time 20.3 sec (23.0-31.2); Platelet Count (auto) 80 10^3/uL (140-450); Red Blood Cells 3.14 10^6/uL (4.0-5.20); Red Cell Distribution Width 14.3 % (11.8-14.3)
[2019-12-16 06:35] LABS: BUN/Creatinine Ratio 6.2; Bilirubin, Total 3.5 mg/dL (0.2-1.0); Total Protein 6.7 g/dL (6.4-8.2)
[2019-12-16 07:06] LABS: Phosphorus 0.5 mg/dL (2.5-4.90); Potassium 2.6 mmol/L (3.5-5.1)
--- NOTE | 2019-12-16 07:07 | NUR ---
Critical lab K+ 2.6 and Phos 0.5. Hospitalist paged.
--- NOTE | 2019-12-16 08:48 | NUR ---
paged Dr. Villalpando for critical K 2.6.
--- NOTE | 2019-12-16 08:56 | NUR ---
Dr. Villalpando at [facility], made aware of the pt's critical K 2.6 and phosphorus 0.5, received order for potassium and phosphorus replacement and check level at 1800 today.
[2019-12-16 09:00] VITALS: BP 129/83
[2019-12-16] MEDS ORDERED: POTASSIUM PHOSPHATE 44 MEQ in D5W 5% 250 ML IV ONE ×2 (09:00→17:00)
[2019-12-16] MEDS ORDERED: POTASSIUM CHL 20 Meq TABLET PO ONE (09:00)
[2019-12-16] MEDS ORDERED: ENOXAPARIN SOD 40 MG/0.4 ML SYRINGE SC SCH (10:00)
[2019-12-16] MEDS ORDERED: FLUOXETINE 10 MG CAP PO SCH (10:00)
[2019-12-16] MEDS ORDERED: PANTOPRAZOLE 40 MG TAB PO SCH (10:00)
--- NOTE | 2019-12-16 11:03 | NUR ---
CALLED DR. ALEMAN'S OFFICE TO CLARIFY PROZAC MEDICATION, SPOKE TO NEELAM , LEFT A MESSAGE. PT STATED SHE IS NOT TAKING THE MEDICATION AT HOME.
[2019-12-16] MEDS ORDERED: FOLIC ACID 1 MG, MULTIPLE VITAMIN 10 ML, MAGNESIUM SULF SDV 50% 8 MEQ, THIAMINE INJ 100... INJ SCH ×5 (12:00)
--- NOTE | 2019-12-16 12:15 | NUR ---
PT SEEN BY DR. ALEMAN, RECEIVED ORDER TO GIVE ANOTHER DOSE OF POTASSIUM PHOSPHATE.
[2019-12-16 13:00] VITALS: BP 120/89
--- NOTE | 2019-12-16 15:47 | NUR ---
Called Dr. Henderson's office spoke to Geno, left a message, pt is not taking her medication for seizure and IV meds.
[2019-12-16 16:54] VITALS: BP 106/57
--- NOTE | 2019-12-16 18:00 | NUR ---
PT IS STILL REFUSING HER BANANA BAG AND IV POTASSIUM.
--- NOTE | 2019-12-16 18:06 | NUR ---
LEFT A MESSAGE WITH DR. ALEMAN TO INFORM THAT PT IS REFUSING HER ORAL AND IV MEDICATIONS.
--- NOTE | 2019-12-16 18:15 | NUR ---
DR. ALEMAN CALLED BACK, PER DR. ALEMAN I WILL HAVE CHARGE NURSE TALK TO THE PT, IF PT STILL REFUSE TO TAKE HER MEDICATION IT IS HER RIGHT.
--- NOTE | 2019-12-16 18:17 | NUR ---
PT'S MOTHER CALLED AND UPDATED ON PT'S STATUS.
--- NOTE | 2019-12-16 18:29 | NUR ---
PT PULLED HER 2 IV LINES, PER PT SHE DOESN'T WANT ANY IV MEDICATION, PT EDUCATED ON THE IMPORTANCE OF HER IV LINE AND HER MEDICATION, PT STATED SHE WILL HAVE ME REINSERT THE IV AFTER DINNER.
[2019-12-16] MEDS: OLANZapine 5 MG TAB PO SCH (18:33)
--- NOTE | 2019-12-16 18:55 | NUR ---
CHARGE NURSE LIANG TALK TO THE PT AND EDUCATED HER ABOUT THE IMPORTANCE OF GETTING IV LINE AND MEDICATION BUT, PT IS STILL REFUSING, PT DECIDED TO GO HOME AMA.
--- NOTE | 2019-12-16 18:59 | NUR ---
PT SEEN BY DR. RIDDLE, PER DR. RIDDLE PT IS ALERT AND ORIENTED IF PT DECIDE TO GO HOME AMA SHE CAN GO, PER DR. RIDDLE HE CANNOT STOP THE PT. MRI RESULT SEEN BY DR. RIDDLE.
--- NOTE | 2019-12-16 19:00 | NUR ---
DR. ALEMAN NOTIFIED, PT LEFT AMA.
--- NOTE | 2019-12-16 19:10 | NUR ---
CALLED FAMILY TO INFORM PT IS LEAVING AMA, NO ANSWER.
--- NOTE | 2019-12-16 19:12 | NUR ---
AMA Note ZULAY HENRY states they want to leave the hospital Against Medical Advice (AMA). Patient encouraged to stay for further treatment/stabilization. DR ASH COELHO notified of patient's wishes. Patient advised of the risks and benefits of leaving AMA. Patient verbalized understanding. Patient encouraged to return to the ER if symptoms do not improve or worsen.
[2019-12-16] MEDS ORDERED: POTASSIUM CHL 20 Meq TABLET PO SCH (22:00)
== END 2019-12-16 19:12 | disposition left against medical advice (07) | DRG 53 ==
LOC: ER 12:57 → EDBD 12:57 → TELE 12:58 → TELE-CENTR 17:36
PROVIDERS: ATTEND Internal Medicine
DX: G40.509 Epileptic seizures related to external causes, not intractable, without status epilepticus (principal); F10.239 Alcohol dependence with withdrawal, unspecified; E87.1 Hypo-osmolality and hyponatremia; E87.6 Hypokalemia; R73.9 Hyperglycemia, unspecified; F25.0 Schizoaffective disorder, bipolar type; R51 Headache; F12.929 Cannabis use, unspecified with intoxication, unspecified; K70.9 Alcoholic liver disease, unspecified; Y90.9 Presence of alcohol in blood, level not specified; Z53.29 Procedure and treatment not carried out because of patient's decision for other reasons; F17.210 Nicotine dependence, cigarettes, uncomplicated
CPT/HCPCS: 36415; 70551; 71045; 80053; 80307; 80320; 81001; 83036; 83735; 84100; 84702; 85025; 85610; 85730; 87081; 96361; 96374; 97163; G0378; J3480; J7060

== ENCOUNTER 2020-07-09 21:53 | Emergency (ER) | payer MEDICAID ==
[~2020-07-09] VITALS: Ht 170.2 cm; Wt 54.4 kg
[~2020-07-09 21:53] MED LIST changes: +OLAN20TA PO; -OLAN20TA13 PO
[2020-07-10 06:00] VITALS: BP 151/107
== END 2020-07-10 07:27 | disposition home or self-care (01) ==
LOC: EDBD 21:53 → ER 21:55
DX: T50.901A Poisoning by unspecified drugs, medicaments and biological substances, accidental (unintentional), initial encounter (principal); R06.81 Apnea, not elsewhere classified; F20.9 Schizophrenia, unspecified; F17.210 Nicotine dependence, cigarettes, uncomplicated; Y92.89 Other specified places as the place of occurrence of the external cause
CPT/HCPCS: 93005

== ENCOUNTER 2021-01-14 08:18 | Inpatient (IN) | payer MEDICAID ==
[~2021-01-14] VITALS: Ht 167.6 cm; Wt 56.1 kg
[2021-01-14] MEDS ORDERED: THIAMINE HCL 100 MG TAB PO ONE (08:30)
[2021-01-14] MEDS ORDERED: ONDANSETRON ODT 4 MG TAB PO ONE (08:30)
[2021-01-14] MEDS ORDERED: SODIUM CHLORIDE 0.9% 1,000 ML IV ONE (08:30)
[2021-01-14 09:10] LABS: Urine Bacteria FEW /hpf (None Seen); Urine Blood Negative /uL (Negative); Urine Hyaline Cast MOD /lpf (0 - 2); Urine Mucus FEW (None Seen); Urine Specific Gravity 1.019 (1.001-1.035); Urine WBC 99 /hpf (0 - 5)
[2021-01-14 09:21] LABS: Amphetamine Screen, Urine POSITIVE (NEGATIVE); Barbiturate Scree,Urine NEGATIVE (NEGATIVE); Benzodiazephine Screen, Urine NEGATIVE (NEGATIVE); Cannabinoid Screen, Urine POSITIVE (NEGATIVE); Cocaine Screen, Urine NEGATIVE (NEGATIVE); Opiate Scree,Urine NEGATIVE (NEGATIVE); Phencyclidine Screen, Urine NEGATIVE (NEGATIVE)
[2021-01-14 09:36] LABS: Hemoglobin 12.4 g/dL (12.2-16.2)
[2021-01-14 09:41] LABS: Hematocrit 35.1 % (36.0-46.0); Mean Corpuscular Hemoglobin 41.5 pg (28.0-32.0); Mean Corpuscular Hgb Conc. 35.4 g/dL (32.0-36.0); Mean Corpuscular Volume 117.3 fL (80.0-100.0); White Blood Cell 10.3 10^3/uL (4.4-10.8)
[2021-01-14 09:54] LABS: Basophils % (manual) 0 (0.0-2.0); Blast Cells 0; Eosinophils % (manual) 0 (0-7); Myelocytes % 0; Promyelocytes % 0; Reactive Lymphocytes 0
[2021-01-14 10:03] LABS: Albumin 2.3 g/dL (3.4-5.0); Bilirubin, Total 11.9 mg/dL (0.2-1.0); Calcium 8.3 mg/dL (8.5-10.1); Total Protein 7.8 g/dL (6.4-8.2)
[2021-01-14] MEDS ORDERED: cefTRIAXone 1GM/50ML D5W 50 ML IV ONE (10:15)
[2021-01-14 10:34] LABS: Amylase 34 U/L (25-115); Lipase 45 U/L (73-393)
[2021-01-14 10:48] LABS: INR 1.21 (0.9-1.15)
[2021-01-14 11:32] LABS: Potassium 2.6 mmol/L (3.5-5.1)
[2021-01-14] MEDS ORDERED: POTASSIUM CHL 20MEQ/100ML 100 ML IV SCH ×2 (11:45→13:30)
[2021-01-14 12:35] LABS: Band Neutrophils % (manual) 2; Lymphocytes % (manual) 14 (10.0-50.0); Metamyelocytes % 1; Monocytes % (manual) 6 (0-12)
[2021-01-14] MEDS ORDERED: LORazepam 2MG/ML-1ML VIAL IV PRN (13:30)
[2021-01-14] MEDS ORDERED: POTASSIUM CHLORIDE 60 MEQ, LIDOCAINE 1% (LOCAL ANESTH.) 6 ML in SODIUM CHL 0.9% 500 ML IV ONE (13:30)
[2021-01-14] MEDS ORDERED: MORPHINE SULFATE INJECTION 2 MG/ML SYRG IV PRN ×2 (13:30→15:15)
[2021-01-14] MEDS ORDERED: NITROGLYCERIN 0.4 MG SL TAB SL PRN (13:30)
[2021-01-14] MEDS ORDERED: SOD CHL 0.45% 1,000 ML IV ONE (13:30)
[2021-01-14 13:36] LABS: Hepatitis A Ab IgM Negative
[2021-01-14 13:59] LABS: Hepatitis B Core IgM Negative
[2021-01-14 14:20] LABS: Hepatitis C Antibody Negative (Negative)
[2021-01-14] MEDS: ONDANSETRON HCL 4 MG/2 ML VIAL IV PRN ×2 (15:30→21:30)
[2021-01-14 16:02] LABS: Calcium 7.6 mg/dL (8.5-10.1); Potassium 3.2 mmol/L (3.5-5.1)
[2021-01-14 16:05] LABS: BUN/Creatinine Ratio 9.4
[2021-01-14] MEDS: HYDROmorphone HCL 2 MG/ML VL IV PRN ×2 (18:03→22:46)
[2021-01-14] MEDS: PANTOPRAZOLE 40 MG TAB PO SCH (22:45)
[2021-01-15] MEDS: HYDROmorphone HCL 2 MG/ML VL IV PRN ×4 (03:02→23:35)
[2021-01-15 07:15] LABS: Albumin 1.9 g/dL (3.4-5.0); Calcium 7.1 mg/dL (8.5-10.1); Potassium 3.7 mmol/L (3.5-5.1)
[2021-01-15 07:19] LABS: Hemoglobin 9.8 g/dL (12.2-16.2); Red Blood Cells 2.38 10^6/uL (4.0-5.20)
[2021-01-15 07:20] LABS: BUN/Creatinine Ratio 9.1; Bilirubin, Total 11.8 mg/dL (0.2-1.0); Hematocrit 27.7 % (36.0-46.0); Mean Corpuscular Hemoglobin 41.1 pg (28.0-32.0); Mean Corpuscular Hgb Conc. 35.3 g/dL (32.0-36.0); Mean Corpuscular Volume 116.6 fL (80.0-100.0); Red Cell Distribution Width 15.7 % (11.8-14.3); Total Protein 6.4 g/dL (6.4-8.2)
[2021-01-15 07:21] LABS: Basophils % (manual) 0 (0.0-2.0); Blast Cells 0; Eosinophils % (manual) 0 (0-7); Metamyelocytes % 0; Myelocytes % 0; Promyelocytes % 0; Reactive Lymphocytes 0
[2021-01-15] MEDS ORDERED: LIDOCAINE VISCOUS 2% 15ML UD ONE (08:24)
[2021-01-15 09:40] VITALS: BP 127/76
[2021-01-15 10:29] LABS: Band Neutrophils % (manual) 6; Lymphocytes % (manual) 12 (10.0-50.0); Monocytes % (manual) 3 (0-12)
[2021-01-15] MEDS: THIAMINE HCL 100 MG TAB PO SCH (10:29)
[2021-01-15] MEDS: MULTIPLE VITAMIN TAB PO SCH (10:29)
[2021-01-15] MEDS: PANTOPRAZOLE 40 MG TAB PO SCH ×2 (10:29→22:07)
[2021-01-15] MEDS: ONDANSETRON HCL 4 MG/2 ML VIAL IV PRN ×2 (10:31→16:56)
[2021-01-15 12:30] VITALS: BP 123/76
[2021-01-15 13:00] VITALS: BP 116/72
[2021-01-15] MEDS ORDERED: LORazepam 2MG/ML-1ML VIAL IV PRN (14:00)
[2021-01-15] MEDS: SODIUM CHLORIDE 0.9% 1,000 ML IV SCH (14:00)
[2021-01-15] MEDS: cefTRIAXone 1GM/50ML D5W 50 ML IV SCH (16:44)
[2021-01-15] MEDS: chlordiazePOXIDE HCL 5 MG CAP PO PRN ×2 (16:57→23:35)
[2021-01-15 17:00] VITALS: BP 121/82
[2021-01-15 22:00] VITALS: BP 127/77
[2021-01-16] MEDS: SODIUM CHLORIDE 0.9% 1,000 ML IV SCH (01:41)
[2021-01-16] MEDS: HYDROmorphone HCL 2 MG/ML VL IV PRN ×3 (04:26→17:04)
[2021-01-16 05:00] VITALS: BP 120/72
[2021-01-16 06:06] LABS: INR 1.3 (0.9-1.15)
[2021-01-16 06:13] LABS: Potassium 3.7 mmol/L (3.5-5.1)
[2021-01-16 06:19] LABS: Albumin 1.9 g/dL (3.4-5.0); BUN/Creatinine Ratio 5.1; Bilirubin, Total 12.6 mg/dL (0.2-1.0); Calcium 7.2 mg/dL (8.5-10.1); Total Protein 6.6 g/dL (6.4-8.2)
[2021-01-16 06:42] LABS: Cholesterol 450 mg/dL (< 200); HDL Cholesterol 13 mg/dL (40-59); LDL Cholesterol 368 mg/dL (< 100); Triglycerides 262 mg/dL (< 150)
[2021-01-16 08:37] LABS: Hemoglobin 11.2 g/dL (12.2-16.2); White Blood Cell 14.4 10^3/uL (4.4-10.8)
[2021-01-16 08:39] LABS: Mean Corpuscular Hgb Conc. 34.1 g/dL (32.0-36.0); Mean Corpuscular Volume 117.3 fL (80.0-100.0); Red Blood Cells 2.81 10^6/uL (4.0-5.20); Red Cell Distribution Width 16.1 % (11.8-14.3)
[2021-01-16 08:43] LABS: Band Neutrophils % (manual) 0; Basophils % (manual) 0 (0.0-2.0); Blast Cells 0; Metamyelocytes % 0; Myelocytes % 0; Promyelocytes % 0; Reactive Lymphocytes 0
[2021-01-16 09:00] VITALS: BP 122/77
[2021-01-16] MEDS: cefTRIAXone 1GM/50ML D5W 50 ML IV SCH (10:07)
[2021-01-16] MEDS: MULTIPLE VITAMIN TAB PO SCH (10:09)
[2021-01-16] MEDS: THIAMINE HCL 100 MG TAB PO SCH (10:09)
[2021-01-16] MEDS: PANTOPRAZOLE 40 MG TAB PO SCH ×2 (10:09→21:39)
[2021-01-16] MEDS: ONDANSETRON HCL 4 MG/2 ML VIAL IV PRN (10:10)
[2021-01-16] MEDS: chlordiazePOXIDE HCL 5 MG CAP PO PRN ×2 (10:11→17:04)
[2021-01-16 12:31] LABS: Eosinophils % (manual) 2 (0-7); Lymphocytes % (manual) 17 (10.0-50.0); Monocytes % (manual) 3 (0-12)
[2021-01-16 12:50] VITALS: BP 105/60
[2021-01-16] MEDS: GABAPENTIN 300 MG CAP PO SCH (21:39)
[2021-01-16 22:00] VITALS: BP 134/91
[2021-01-17] MEDS: chlordiazePOXIDE HCL 5 MG CAP PO PRN (00:05)
[2021-01-17] MEDS: HYDROmorphone HCL 2 MG/ML VL IV PRN ×2 (00:07→04:09)
[2021-01-17 05:00] VITALS: BP 131/82
[2021-01-17 05:57] LABS: Hemoglobin 10.7 g/dL (12.2-16.2)
[2021-01-17 05:59] LABS: Hematocrit 32.3 % (36.0-46.0); Mean Corpuscular Hemoglobin 40.5 pg (28.0-32.0); Mean Corpuscular Volume 122.7 fL (80.0-100.0); Red Blood Cells 2.63 10^6/uL (4.0-5.20); Red Cell Distribution Width 16.3 % (11.8-14.3); White Blood Cell 14.7 10^3/uL (4.4-10.8)
[2021-01-17] MEDS: GABAPENTIN 300 MG CAP PO SCH (06:00)
[2021-01-17 06:05] LABS: Band Neutrophils % (manual) 0; Basophils % (manual) 0 (0.0-2.0); Blast Cells 0; Metamyelocytes % 0; Myelocytes % 0; Promyelocytes % 0; Reactive Lymphocytes 0
[2021-01-17 06:09] LABS: INR 1.3 (0.9-1.15)
[2021-01-17 06:17] LABS: Albumin 2.2 g/dL (3.4-5.0); BUN/Creatinine Ratio 4.3; Calcium 7.7 mg/dL (8.5-10.1); Potassium 3.6 mmol/L (3.5-5.1)
[2021-01-17 06:29] LABS: Bilirubin, Total 15.2 mg/dL (0.2-1.0); Total Protein 7.2 g/dL (6.4-8.2)
[2021-01-17 06:42] LABS: Eosinophils % (manual) 3 (0-7); Lymphocytes % (manual) 14 (10.0-50.0); Monocytes % (manual) 2 (0-12)
[2021-01-17 08:55] VITALS: BP 110/65
[2021-01-17] MEDS ORDERED: FOLIC ACID 1 MG, MULTIPLE VITAMIN 10 ML, MAGNESIUM SULF SDV 50% 8 MEQ, THIAMINE INJ 100... INJ SCH ×5 (12:00)
== END 2021-01-17 10:16 | disposition left against medical advice (07) | DRG 279 ==
LOC: EDBD 08:18 → ER 08:18 → TELE 13:16 → TELE-WESTW 01-15 09:24
PROVIDERS: ADMIT Nurse Practitioner Acute Care; ATTEND Internal Medicine
DX: K72.00 Acute and subacute hepatic failure without coma (principal); G92.8 Other toxic encephalopathy; E44.1 Mild protein-calorie malnutrition; K70.30 Alcoholic cirrhosis of liver without ascites; E87.1 Hypo-osmolality and hyponatremia; Z20.822 Contact with and (suspected) exposure to COVID-19; D64.9 Anemia, unspecified; E87.6 Hypokalemia; N63.20 Unspecified lump in the left breast, unspecified quadrant; N20.0 Calculus of kidney; Z53.29 Procedure and treatment not carried out because of patient's decision for other reasons; F12.10 Cannabis abuse, uncomplicated; F15.10 Other stimulant abuse, uncomplicated; F10.239 Alcohol dependence with withdrawal, unspecified; N39.0 Urinary tract infection, site not specified; R25.1 Tremor, unspecified; F17.210 Nicotine dependence, cigarettes, uncomplicated; F20.9 Schizophrenia, unspecified; F31.9 Bipolar disorder, unspecified; Y90.8 Blood alcohol level of 240 mg/100 ml or more; Z79.899 Other long term (current) drug therapy; Z82.49 Family history of ischemic heart disease and other diseases of the circulatory system; Z90.49 Acquired absence of other specified parts of digestive tract
CPT/HCPCS: 36415; 71046; 74176; 80048; 80053; 80061; 80074; 80307; 80320; 81001; 81025; 82140; 82150; 83036; 83690; 83880; 84484; 85007; 85027; 85610; 85730; 87426; 93005; 93306; 96361; 96365; 96366; 96367; G0378; J0696; J2001; J2405; J3480; Q0162